=== PATIENT | male | born 1960 | race Caucasian/White ===

== ENCOUNTER 2019-06-23 23:48 | Inpatient (IN) | payer OTHER ==
[~2019-06-23] VITALS: Ht 165.1 cm; Wt 84.0 kg
[2019-06-24 00:25] LABS: Chloride (POC) 97 mmol/L (98-108); Creatinine (POC) 1.6 mg/dL (0.8-1.3); Glucose (ISTAT POC) 316 mg/dL (70-99); Hemoglobin (POC) 13.3 g/dL (13.5-17.5); Potassium (POC) 4.2 mmol/L (3.5-5.5); Sodium (POC) 132 mmol/L (135-148); Total CO2 (POC) 27 mmol/L (21-32)
[2019-06-24 00:29] LABS: BASOPHILS ABSOLUTE AUTO 0.02 K/mm3 (0.00-0.23); BASOPHILS PERCENT AUTO 0 % (0-2); EOSINOPHILS ABSOLUTE AUTO 0.04 K/mm3 (0.00-0.68); EOSINOPHILS PERCENT AUTO 1 % (0-6); Hematocrit 37.7 % (37.0-53.0); IMMATURE GRAN ABSOLUTE AUTO 0.02 K/mm3 (0.00-0.10); IMMATURE GRAN PERCENT AUTO 0 % (0-1); LYMPHOCYTES ABSOLUTE AUTO 0.85 K/mm3 (0.84-5.20); LYMPHOCYTES PERCENT AUTO 18 % (21-46); MONOCYTES ABSOLUTE AUTO 0.88 K/mm3 (0.16-1.47); MONOCYTES PERCENT AUTO 19 % (4-13); Mean Corpuscular HGB 27.9 pg (26.0-34.0); Mean Corpuscular HGB Conc 31.8 g/dL (31.5-36.5); Mean Corpuscular Volume 88 fL (80-100); Mean Platelet Volume 10.3 fL (9.1-12.4); NEUTROPHILS ABSOLUTE AUTO 2.88 K/mm3 (1.96-9.15); NEUTROPHILS PERCENT AUTO 61 % (41-73); Platelet Count 87 K/mm3 (150-400); RDW Coefficient Variation 17.1 % (11.7-14.2); RDW Standard Deviation 54.8 fL (35.1-46.3); White Blood Cell Count 4.69 K/mm3 (4.00-11.30)
[2019-06-24 00:41] LABS: International Normalized Ratio 1.22; Prothrombin Time Results 12.7 Sec (9.7-11.5)
[2019-06-24 00:46] LABS: Alanine Aminotransfer (ALT/SGP 39 U/L (12-78); Albumin, Blood 2.1 g/dL (3.4-5.0); Albumin/Globulin Ratio 0.4 (0.8-1.8); Alk Phos 232 U/L (50-136); Anion Gap 13 mmol/L (6-16); Aspartate Aminotrans (AST/SGOT 41 U/L (12-37); Bilirubin, Total 1.8 mg/dL (0.1-1.0); Blood Urea Nitrogen 28 mg/dL (8-24); Bun/Creatinine Ratio 19.4 (12.0-20.0); CO2, Blood 23 mmol/L (21-32); Calcium, Blood 8.9 mg/dL (8.5-10.1); Chloride, Blood 99 mmol/L (98-108); Creatinine, Blood 1.44 mg/dL (0.60-1.20); Ethanol (Alcohol), Blood, Med <3 mg/dL; Globulin, Blood 4.8 g/dL (2.2-4.0); Glomerular Filtration Rate 53 (60-); Glucose, Blood 314 mg/dL (70-99); Potassium, Blood 4.2 mmol/L (3.5-5.5); Sodium, Blood 135 mmol/L (136-145); Total Protein, Blood 6.9 g/dL (6.4-8.2)
[2019-06-24] MEDS ORDERED: METF500 PO (03:22)
[2019-06-24] MEDS ORDERED: POTA8 PO (03:22)
[2019-06-24] MEDS ORDERED: FURO40 PO (03:22)
[2019-06-24] MEDS ORDERED: GABA300 PO (06:16)
[2019-06-24] MEDS ORDERED: ESCI10 PO (06:19)
[2019-06-24] MEDS ORDERED: LOSA25 PO (06:20)
--- NOTE | 2019-06-24 06:30 | NUR ---
ADMISSION PT ARRIVES TO U2 FROM ER VIA GURNEY AT APPROXIMATELY 0600. PT IS AOX4 AT THIS TIME. VSS. VERY PLEASANT GENTLEMEN. PT WALKS TO RESTROOM WITH UNSTEADY GAIT, REQUIRES 1-2 PERSON ASSIST; STATES THAT HE ORDINARILY DOES NOT HAVE ISSUES WITH AMBULATION OR USE ASSISTIVE DEVICES. PT ORIENTED TO ROOM AND CALL LIGHT SYSTEM, ENCOURAGED TO CALL FOR ASSISTANCE AND EDUCATED ON FALL RISK AND SAFETY. INFORMED PATIENT THAT BED ALARM WOULD BE SET FOR SAFETY. WILL CONTINUE WITH ADMISSION AND ASSESSMENT. BED IN LOW POSITION,CALL LIGHT IN REACH. BED ALARM SET FOR SAFETY.
--- NOTE | 2019-06-24 07:45 | NUR ---
START OF SHIFT NOTE: RECEIVED REPORT FROM ANA Sanford, ASSUMED CARE, PATIENT IS AWAKE, SLIGHTLY LETHARGIC AND SLOW TO RESPOND, BUT OTHERWISE ALERT AND ORIENTED, ON RA SATING AT 98 %, LUNG SOUNDS ARE CLEAR BUT DIMINISHED, PATIENT HAS DISTENDED ABDOMEN D/T NON-ALCOHOLIC LIVER CIRRHOSIS AND FLUID COLLECTION, WILL HAVE PARACENTESIS TODAY, NPO AT THIS TIME, SR, HR 80'S TO 90'S, PATIENT USES URINAL TO VOID, USES CALL LIGHT APPROPRIATELY TO MAKE NEEDS KNOWN, TOX SCREEN SENT, BLOOD GLUCOSE 282 COVERED WITH HUMALOG, DR. SIERRA IN TO SEE PATIENT, TELEMETRY D/C'D, PATIENT NOW MEDICAL STATUS, POSSIBLE TRANSFER WHEN BED AVAILABLE, SCD'S IN PLACE, CALL LIGHT IN REACH, WILL CONTINUE TO MONITOR.
[2019-06-24 08:26] LABS: U Amphetamine Screen Not Detected; U Barbituate Screen Not Detected; U Benzodiazapine Screen Not Detected; U Buprenorphine Screen Not Detected; U Cannabinoids Screen Not Detected; U Cocaine Screen Not Detected; U Methadone Screen Not Detected; U Methamphetamine Screen Not Detected; U Opiates Screen Not Detected; U Oxycodone Screen Not Detected; U Phencyclidine Screen Not Detected; U Propoxyphene Screen Not Detected
--- NOTE | 2019-06-24 09:00 | NUR ---
PATIENT TO IMAGING VIA WHEELCHAIR AND TRANSPORT PERSON, [facility], FOR PARACENTESIS, ORDERS FOR ALBUMIN WERE PLACED BY DR. SIERRA, PHARMACY AWAITING TOTAL REMOVAL OF FLUIDS.
--- NOTE | 2019-06-24 10:21 | NUR ---
PATIENT RETURNED FROM PARACENTESIS, 6.5 L OF FLUID WERE REMOVED, PHARMACY NOTIFIED, AWAITING ALBUMIN ORDER, CALL LIGHT IN REACH, WILL CONTINUE TO MONITOR.
[2019-06-24 10:48] LABS: Automated BF RBC Count 0.002 M/mm3 (0-0); Automated BF WBC Count 0.094 K/mm3 (0-999); Body Fluid WBC Count 94 /mm3 (0-999)
[2019-06-24 10:53] LABS: Albumin, Body Fluid 0.2 g/dL; Lactate Dehydrogenase, Body Fl 22 U/L; Protein, Body Fluid 0.5 g/dL
[2019-06-24 10:55] LABS: pH, Body Fluid 7.5
[2019-06-24 11:14] LABS: Total Cell Count, Body Fluid 100
[2019-06-24 11:15] LABS: Appearance, Body Fluid Hazy (Clear); Color, Body Fluid L Yellow (None-Yellow)
--- NOTE | 2019-06-24 11:30 | NUR ---
PATIENT UP TO BSC WITH SBA ONLY, CALL LIGHT IN REACH, WILL CONTINUE TO MONITOR.
--- NOTE | 2019-06-24 12:45 | NUR ---
SPOKE WITH GIACOMO, FROM [employer] [employer], PATIENT'S EMPLOYER, WITH PATIENT'S PERMISSION, UPDATE ON PATIENT CONDITION PROVIDED.
[2019-06-24 12:59] LABS: Hematocrit 35.2 % (37.0-53.0); Hemoglobin 11.5 g/dL (13.5-17.5); Mean Corpuscular HGB 28.3 pg (26.0-34.0); Mean Corpuscular HGB Conc 32.7 g/dL (31.5-36.5); Mean Corpuscular Volume 87 fL (80-100); Mean Platelet Volume 9.9 fL (9.1-12.4); Platelet Count 65 K/mm3 (150-400); RDW Coefficient Variation 16.9 % (11.7-14.2); RDW Standard Deviation 54.2 fL (35.1-46.3); Red Blood Cell Count 4.07 M/mm3 (4.30-5.90); White Blood Cell Count 4.02 K/mm3 (4.00-11.30)
[2019-06-24 13:14] LABS: Alanine Aminotransfer (ALT/SGP 37 U/L (12-78); Albumin, Blood 3.3 g/dL (3.4-5.0); Albumin/Globulin Ratio 0.7 (0.8-1.8); Alk Phos 219 U/L (50-136); Anion Gap 13 mmol/L (6-16); Aspartate Aminotrans (AST/SGOT 32 U/L (12-37); Bilirubin, Total 2.1 mg/dL (0.1-1.0); Blood Urea Nitrogen 31 mg/dL (8-24); CO2, Blood 22 mmol/L (21-32); Calcium, Blood 9.5 mg/dL (8.5-10.1); Chloride, Blood 101 mmol/L (98-108); Creatinine, Blood 1.29 mg/dL (0.60-1.20); Globulin, Blood 4.6 g/dL (2.2-4.0); Glomerular Filtration Rate >60 (60-); Glucose, Blood 253 mg/dL (70-99); Potassium, Blood 4.6 mmol/L (3.5-5.5); Sodium, Blood 136 mmol/L (136-145); Total Protein, Blood 7.9 g/dL (6.4-8.2)
--- NOTE | 2019-06-24 15:38 | NUR ---
PATIENT IS NOTIFIED THAT HE WILL NEED A SAFE RIDE HOME TO [place] WHEN DISCHARGED MAYBE TOMORROW PER HOSPITALIST. PHONE NUMBER ON CHART IS NOT VALID NUMBER. PT GIVES NUMBER [phone] FOR DOUGLAS VERDIN. GIACOMO [employer] WORKERS COMP. [phone] DIRK BLAS RN CARE MANAGER ,, , ,
--- NOTE | 2019-06-24 15:55 | NUR ---
ATTEMPTED TO CALL REPORT TO ANA WALDROP, ON MEDICAL FLOOR TO GIVE REPORT, SHE IS STILL AT LUNCH, WILL CALL ME BACK.
--- NOTE | 2019-06-24 16:09 | NUR ---
REPORT CALLED TO ANA WALDROP, WILL TRANSFER PATIENT TO MEDICAL FLOOR ROOM 363 VIA WHEELCHAIR.
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
[2019-06-25] MEDS ORDERED: PANT40 PO (04:28)
[2019-06-25] MEDS ORDERED: Aldactone100 MG PO (04:38)
[2019-06-25] MEDS ORDERED: FARXIGA10 MG PO (04:48)
[2019-06-25] MEDS ORDERED: LOSA50 PO (04:51)
[2019-06-25] MEDS ORDERED: TORSE20 PO (04:52)
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
[2019-06-25 09:07] LABS: HBSAG SCREEN Negative (Negative); HEP B CORE AB, TOT Negative (Negative); HEP C VIRUS AB 0.3 (0.0-0.9)
[2019-06-25] MEDS ORDERED: LACT10SY PO (10:16)
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
--- NOTE | 2019-06-25 14:50 | NUR ---
NURSE TODD PROVIDE TAXI VOUCHER FOR TRANSPORT TO [facility] & THEN TO [facility] SO PT CAN PICK-UP BELONGINGS & GET [place] [facility] FOR EXPENSES. PT WILL THEN MAKE ARRANGEMENTS TO GET TO PHARMACY & [facility]EL. HIS COMPANY WILL PROVIDE TRAVEL ARRANGEMENTS BACK TO [place].
== END 2019-06-25 14:32 | disposition home or self-care (01) | DRG 442 ==
LOC: ER 23:48 → PCU 23:49 → MEDS 06-24 03:52 → PCU 06-24 03:52 → MEDS 06-24 16:24 → ENPENDDIS 06-25 11:09 → MEDS 06-25 14:32
PROVIDERS: Emergency Medicine; Internal Medicine; ADMIT Internal Medicine
PROC: 0W9G30Z Drainage of Peritoneal Cavity with Drainage Device, Percutaneous Approach (ICD-10-PCS; principal; 2019-06-24)
DX: K72.00 Acute and subacute hepatic failure without coma (principal); K76.6 Portal hypertension; R18.8 Other ascites; S20.219A Contusion of unspecified front wall of thorax, initial encounter; S70.12XA Contusion of left thigh, initial encounter; E86.0 Dehydration; E11.65 Type 2 diabetes mellitus with hyperglycemia; V69.9XXA Occupant (driver) (passenger) of heavy transport vehicle injured in unspecified traffic accident, initial encounter; Z79.84 Long term (current) use of oral hypoglycemic drugs
CPT/HCPCS: 36415; 49083; 70450; 71045; 71260; 74177; 80047; 80053; 82042; 82140; 82947; 83615; 83735; 83986; 84157; 84484; 85014; 85025; 85027; 85610; 86317; 86704; 86708; 86803; 86850; 86900; 86901; 87070; 87077; 87186; 87205; 87340; 88108; 89051; 93005; 93010; 93306; 96374; 96375; 99285-25; G0480; J1170; J1200; J2405; J2930; P9046; Q9967